=== PATIENT | male | born 1990 | race American Indian/Alaskan Native ===

== ENCOUNTER 2016-09-02 16:01 | Emergency (ER) | payer SELFPAY ==
[2016-09-02 17:20] VITALS: BMI 23.7
[2016-09-02 17:23] VITALS: BP 124/86; PULSE 59; RESP 16; TEMP 99.1; O2SAT 99
[2016-09-02] MEDS ORDERED: Tmp-Smz 800 mg-160 mg DS Tab PO STA (19:46)
--- NOTE | 2016-09-02 19:46 | ED PDOC ---
Arrival/HPI - General Historian: Patient - General Chief Complaint: Foreign Body Time Seen by Provider: 09/02/16 19:46 - History of Present Illness Narrative History of Present Illness (Text): 09/02/16 21:31 26-year-old male presents today with foreign body in the posterior aspects of the earlobes bilaterally. Patient states about a week ago he had both ears pierced. Patient states over the past few days he noticed that the backing of the earring had disappeared into the earlobe. Patient denies fevers or chills. He is complaining of minimal pain. Denies headache dizziness or weakness. No other complaints (Nancy Munoz) Past Medical History - Provider Review Nursing Documentation Reviewed: Yes - Travel History Have you recently traveled outside [place] w/in the past 3 mons?: No - Infectious Disease Hx of Infectious Diseases: None - Psychiatric Hx Substance Use: No - Surgical History Other/Comment: epidural - Anesthesia Hx Anesthesia: No - Suicidal Assessment Feels Threatened In Home Enviroment: No Family/Social History - Physician Review Nursing Documentation Reviewed: Yes Family/Social History: Unknown Family HX Smoking Status: Never Smoked Hx Alcohol Use: Yes Hx Substance Use: No Allergies/Home Meds Allergies/Adverse Reactions: Allergies No Known Allergies Allergy (Verified 09/06/13 13:37) Review of Systems - Review of Systems Constitutional: absent: Fatigue, Fevers ENT: Other (fb in ear lobe, pain to earlobes) Respiratory: absent: SOB, Cough Cardiovascular: absent: Chest Pain, Palpitations Gastrointestinal: absent: Abdominal Pain, Nausea, Vomiting Skin: absent: Rash, Pruritis Neurological: absent: Headache, Dizziness Psychiatric: absent: Anxiety, Depression Physical Exam Vital Signs Reviewed: Yes Temperature: Afebrile Blood Pressure: Normal Pulse: Regular Respiratory Rate: Normal Appearance: Positive for: Well-Appearing, Non-Toxic, Comfortable Pain Distress: None Mental Status: Positive for: Alert and Oriented X 3 - Systems Exam Head: Present: Atraumatic Conjunctiva: Present: Normal Ears: Present: Other (no mastoid tenderness; no ear swelling.). No: Normal ( right ear lobe; there is FB noted to posterior aspect of earlobe; + tenderness. no erythema; no edema. left ear; + backing of earring within the posterior aspect of earlobe; no purulent discharge; minimal tenderness. ), Erythema Mouth: Present: Moist Mucous Membranes Respiratory/Chest: Present: Clear to Auscultation Cardiovascular: Present: Regular Rate and Rhythm Skin: Present: Warm, Dry Psychiatric: Present: Alert, Oriented x 3 Vital Signs Temp Pulse Resp BP Pulse Ox 09/02/16 17:23 99.1 F 59 L 16 124/86 99 Medical Decision Making ED Course and Treatment: 09/02/16 21:34 Patient is nontoxic well-appearing no distress with stable vital signs with the packing of his earrings stuck in the posterior aspect of his earlobes. Foreign bodies of both ears were removed by Dr. Jose Lebron. pt started on bactrim; Patient was advised to keep the wounds clean and dry and apply bacitracin twice daily. He was advised to follow up with his surgeon as well as following up with a primary care physician within the next 2 days. Patient was advised to take Bactrim twice daily as prescribed. Patient was advised immediately return if symptoms worsen or persist or if new concerning symptoms develop Patient verbalizes understanding of discharge instructions and need for immediate followup. all aspects of this case were discussed the attending of record. Impression: Foreign body in earlobes Motrin every 6 hours as needed for pain Bactrim twice daily 7 days Bacitracin twice daily to the affected areas Follow-up with primary care physician within the next 2 days Follow-up with a surgeon within the next 2 days Return immediately if symptoms worsen persist or if new concerning symptoms develop (Nancy Munoz) - Medication Orders Current Medication Orders: Discontinued Medications Trimethoprim/Sulfamethoxazole (Bactrim Ds Tab) 1 tab PO STAT STA PRN Reason: Protocol Stop: 09/02/16 19:47 Last Admin: 09/02/16 19:56 Dose: 1 tab - Procedure PROCEDURE NOTE (Text): PROCEDURE: FOREIGN BODY REMOVAL Performed by the emergency provider Timeout: A timeout to verify the correct patient, procedure, and site was performed immediately prior to the procedure. Indication: Foreign body in ear lobe bilaterally Procedure: The earring backs were removed using Lidocaine 1% and forceps. Post-procedure: Patient tolerated the procedure well with no immediate complications. The foreign body was removed. There was minimal bleeding. ( Jose Lebron) Disposition/Present on Arrival - Present on Arrival Any Indicators Present on Arrival: No History of DVT/PE: No History of Uncontrolled Diabetes: No Urinary Catheter: No History of Decub. Ulcer: No History Surgical Site Infection Following: None - Disposition Have Diagnosis and Disposition been Completed?: Yes Disposition Time: 20:00 Patient Plan: Discharge - Disposition Diagnosis: Foreign body in ear lobe Disposition: HOME/ ROUTINE Condition: GOOD Discharge Instructions (ExitCare): Soft Tissue Foreign Body (ED) Additional Instructions: Motrin every 6 hours as needed for pain Bactrim twice daily 7 days Bacitracin twice daily to the affected areas Follow-up with primary care physician within the next 2 days Follow-up with a surgeon within the next 2 days Return immediately if symptoms worsen persist or if new concerning symptoms develop Prescriptions: Bacitracin OINT 1 applic TP BID #1 tube Sulfamethoxazole/Trimethoprim [Bactrim DS 800 mg-160 mg] 1 tab PO BID #14 tab Referrals: Maldonado Shah MD [Medical Doctor] - Follow up with primary [facility] [place] [Outside] - Follow up with primary [facility] [place] [Outside] - Follow up with primary Forms: WORK NOTE
== END 2016-09-02 20:19 | disposition home or self-care (01) ==
LOC: ED 16:01
DX: S00.451A Superficial foreign body of right ear, initial encounter (principal); S00.452A Superficial foreign body of left ear, initial encounter; X58.XXXA Exposure to other specified factors, initial encounter; Y93.89 Activity, other specified; Y92.89 Other specified places as the place of occurrence of the external cause

== ENCOUNTER 2018-06-06 21:58 | Emergency (ER) | payer SELFPAY ==
[2018-06-06 21:58] VITALS: BMI 23.7
[2018-06-06 22:08] VITALS: TEMP 98.5
[2018-06-06] MEDS ORDERED: Sodium Chloride 0.9% 1,000 ML IV STA (22:13)
--- NOTE | 2018-06-06 22:15 | ED PDOC ---
Arrival/HPI - General Chief Complaint: Abdominal Pain Time Seen by Provider: 06/06/18 22:06 Historian: Patient - History of Present Illness Narrative History of Present Illness (Text): 06/06/18 22:12 Masood Salas is a 27 year old male, with no significant past medical history, who presents to the ED complaining of vomiting. Patient states he has been experiencing nausea and vomiting with associated abdominal cramping for the past 3 days. Patient notes he ate tuna prior to onset of symptoms. Patient denies any fever, chills, chest pain, shortness of breath, diarrhea, urinary symptoms, back pain, neck pain, headache, dizziness, or any other complaints. Time/Duration: < week (3 days) Symptom Onset: Gradual Symptom Course: Unchanged Activities at Onset: Light Context: Home Past Medical History - Provider Review Nursing Documentation Reviewed: Yes - Infectious Disease Hx of Infectious Diseases: None - Psychiatric Hx Substance Use: No - Surgical History Other/Comment: epidural - Anesthesia Hx Anesthesia: No - Suicidal Assessment Feels Threatened In Home Enviroment: No Family/Social History - Physician Review Nursing Documentation Reviewed: Yes Family/Social History: Unknown Family HX Smoking Status: Never Smoked Hx Alcohol Use: Yes Frequency of alcohol use: Socially Hx Substance Use: No Allergies/Home Meds Allergies/Adverse Reactions: Allergies No Known Allergies Allergy (Verified 09/06/13 13:37) Review of Systems - Physician Review All systems were reviewed & negative as marked: Yes - Review of Systems Constitutional: Normal. absent: Fevers Eyes: Normal ENT: Normal Respiratory: Normal. absent: SOB, Cough Cardiovascular: Normal. absent: Chest Pain Gastrointestinal: Abdominal Pain, Nausea, Vomiting. absent: Diarrhea Genitourinary Male: Normal. absent: Dysuria, Frequency, Hematuria, Urinary Output Changes Musculoskeletal: Normal. absent: Back Pain, Neck Pain Skin: Normal. absent: Rash Neurological: Normal. absent: Headache, Dizziness Endocrine: Normal Hemo/Lymphatic: Normal Psychiatric: Normal Physical Exam Vital Signs Reviewed: Yes Vital Signs Temp Pulse Resp BP Pulse Ox 06/06/18 22:08 98.5 F 61 18 127/81 98 Temperature: Afebrile Blood Pressure: Normal Pulse: Regular Respiratory Rate: Normal Appearance: Positive for: Well-Appearing, Non-Toxic, Comfortable Pain Distress: None Mental Status: Positive for: Alert and Oriented X 3 - Systems Exam Head: Present: Atraumatic, Normocephalic Pupils: Present: PERRL Extroacular Muscles: Present: EOMI Conjunctiva: Present: Normal Mouth: Present: Moist Mucous Membranes Neck: Present: Normal Range of Motion Respiratory/Chest: Present: Clear to Auscultation, Good Air Exchange. No: Respiratory Distress, Accessory Muscle Use Cardiovascular: Present: Regular Rate and Rhythm, Normal S1, S2. No: Murmurs Abdomen: No: Tenderness, Distention, Peritoneal Signs Back: Present: Normal Inspection Upper Extremity: Present: Normal Inspection. No: Cyanosis, Edema Lower Extremity: Present: Normal Inspection. No: Edema Neurological: Present: GCS=15, CN II-XII Intact, Speech Normal Skin: Present: Warm, Dry, Normal Color. No: Rashes Psychiatric: Present: Alert, Oriented x 3, Normal Insight, Normal Concentration Medical Decision Making ED Course and Treatment: 06/06/18 22:12 Impression: 27 year old male complaining of nausea, vomiting, and abdominal cramping. Plan: -- Labs, lipase -- IV fluids -- Zofran -- Toradol -- Pepcid -- Reassess and disposition Progress Notes: - Scribe Statement The provider has reviewed the documentation as recorded by the Raj Hernandez Provider Scribe Attestation: All medical record entries made by the Scribe were at my direction and personally dictated by me. I have reviewed the chart and agree that the record accurately reflects my personal performance of the history, physical exam, medical decision making, and the department course for this patient. I have also personally directed, reviewed, and agree with the discharge instructions and disposition. Disposition/Present on Arrival - Present on Arrival Any Indicators Present on Arrival: No History of DVT/PE: No History of Uncontrolled Diabetes: No Urinary Catheter: No History of Decub. Ulcer: No History Surgical Site Infection Following: None - Disposition Have Diagnosis and Disposition been Completed?: Yes Diagnosis: Gastritis Disposition: HOME/ ROUTINE Disposition Time: 04:37 Patient Plan: Discharge Patient Problems: Current Active Problems Problem Status Onset Gastritis Acute Condition: GOOD Discharge Instructions (ExitCare): Gastritis (DC) Additional Instructions: Drink small amounts of liquids at a time/take meds as prescribed/advance diet slowly tommorow as tolerated/follow up with your doctor this week Prescriptions: Phenobarb/Hyoscy/Atropine/Scop [ Tablet] 16.2 mg PO Q6 PRN #12 tablet PRN Reason: Dyspepsia Ondansetron ODT [Zofran ODT] 4 mg PO Q6 PRN #12 odt PRN Reason: Nausea/Vomiting Referrals: FAMILY PROVIDER,NO [Primary Care Provider] - Follow up with primary Forms: [facility] [employer] (Yi)
[2018-06-06 22:43] LABS: HEMOGLOBIN 15.1 g/dL (14.0-18.0); MEAN CORPUSCULAR HEMOGLOBIN 29.7 pg (25.0-35.0); MEAN CORPUSCULAR HGB CONC 33.8 g/dl (31.0-37.0); MEAN PLATELET VOLUME 9.1 fl (7.0-11.0); RBC 5.08 10^6/uL (3.5-6.1); RED CELL DISTRIBUTION WIDTH 12.1 % (11.5-14.5); WHITE BLOOD COUNT 9.2 10^3/uL (4.5-11.0)
[2018-06-06 22:52] LABS: ALB/GLOB RATIO 1.2 (1.1-1.8); ALT/SGPT 24 U/L (7-56); AST/SGOT 39 U/L (17-59); BLOOD UREA NITROGEN 11 mg/dL (7-21); CALCIUM 9.7 mg/dL (8.4-10.5); GFR NON-AFRICAN AMERICAN > 60; LIPASE 44 U/L (23-300)
[2018-06-07] MEDS ORDERED: Potassium Chloride 20 mEq ER Tab PO STA (00:40)
[2018-06-07] MEDS ORDERED: TraMADol/Apap 37.5/325 mg Tab PO STA (00:41)
[2018-06-07] MEDS ORDERED: DiphenhydrAMINE 50 mg/ml Inj IVP ONE (00:43)
[2018-06-07] MEDS ORDERED: Morphine 2 mg/ml ISec IVP STA (01:07)
[2018-06-07 05:30] VITALS: BP 116/74; PULSE 68; RESP 16; O2SAT 99
== END 2018-06-07 05:15 | disposition home or self-care (01) ==
LOC: ED 21:58
DX: K29.70 Gastritis, unspecified, without bleeding (principal)
CPT/HCPCS: 80053; 83690; 85027; 96361; 96374; 96375; 99285; J1200; J1885; J2270; J2405; J2765; J7030